=== PATIENT | male | born 1955 | race Caucasian/White ===

== ENCOUNTER 2022-12-14 07:50 | Outpatient (CLI) | payer OTHER, SELFPAY ==
[2022-12-14 10:01] LABS: Basophils Absolute Auto 0.01 K/uL (0.00-0.30); Basophils Percent Auto 0.1 % (0.0-3.0); Eosinophils Absolute Auto 0.19 K/uL (0.00-0.50); Hematocrit 50.5 % (37.0-53.0); Hemoglobin* 17.2 gm/dL (13.5-17.5); Immature Granulocytes Abs Auto 0.06 K/uL (0.00-0.30); Immature Granulocytes Pct Auto 0.6 %; Lymphocytes Absolute Auto 2.19 K/uL (0.90-2.90); Mean Corpuscular HGB Conc 34 gm/dL (32-36); Mean Corpuscular Hemoglobin 28 pg (26-34); Mean Corpuscular Volume 83 fL (80-100); Monocytes Percent Auto 8.4 % (0.0-11.0); Neutrophils Absolute Auto 6.26 K/uL (1.7-7.0); Neutrophils Percent Auto 65.9 % (42.0-72.0); Platelet Count* 315 K/uL (140-440); RDW Coefficient of Variation % 13.5 % (11.5-15.5); Red Blood Count 6.09 m/uL (4.30-5.90); White Blood Count* 9.51 K/uL (4.50-11.00)
[2022-12-14 10:08] LABS: Slide Review Reflex No
[2022-12-14 10:20] LABS: C Reactive Protein* 1.5 mg/dL (0.5-1.0)
[2022-12-14 10:49] LABS: Erythrocyte SedimentationRate* 4 mm/hr (2-15)
== END 2022-12-14 07:51 | disposition home or self-care (01) ==
PROVIDERS: PCP Internal Medicine; Visit Provider Nurse Practitioner Family
DX: E11.621 Type 2 diabetes mellitus with foot ulcer (principal); L97.522 Non-pressure chronic ulcer of other part of left foot with fat layer exposed; I10 Essential (primary) hypertension; E66.01 Morbid (severe) obesity due to excess calories; Z68.42 Body mass index [BMI] 45.0-49.9, adult; Z79.4 Long term (current) use of insulin
CPT/HCPCS: 36415; 85025; 85651; 86140; 99214

== ENCOUNTER 2022-12-14 09:52 | Outpatient (CLI) | payer OTHER, SELFPAY ==
--- NOTE | 2022-12-14 10:00 | CRLHL7_ITS ---
For Patients: As a result of the Cures Act, medical imaging exams and procedure reports are released immediately into your electronic medical record. You may view this report before your referring provider. If you have questions, please contact your health care provider. Indication: NON-HEALING DIABETIC ULCER TO LEFT FOOT Technique: Left foot 3 views Comparison: None Findings: Plantar and posterior calcaneal spurs are present. Soft tissue swelling noted. Mild degenerative changes at the 1st MTP joint. No fracture or destructive osseous lesion. No dislocation. Impression: No evidence of osteomyelitis. Dictated by Sammy Mcgraw MD @ 12/14/2022 10:17:37 AM (Electronically Signed)
== END 2022-12-14 09:53 | disposition home or self-care (01) ==
LOC: RAD 09:52
PROVIDERS: PCP Internal Medicine; Visit Provider Nurse Practitioner Family
DX: E11.621 Type 2 diabetes mellitus with foot ulcer (principal); L97.522 Non-pressure chronic ulcer of other part of left foot with fat layer exposed
CPT/HCPCS: 73630

== ENCOUNTER 2022-12-19 14:59 | Outpatient (CLI) | payer OTHER, SELFPAY ==
--- NOTE | 2022-12-19 15:00 | CRLHL7_ITS ---
For Patients: As a result of the Century Cures Act, medical imaging exams and procedure reports are released immediately into your electronic medical record. You may view this report before your referring provider. If you have questions, please contact your health care provider. INDICATION: Nonhealing foot ulcer. COMPARISON: None available. TECHNIQUE: Duplex arterial ultrasound examination bilateral extremities with 2D and spectral analysis and color Doppler imaging. FINDINGS: RIGHT: PSV (cm/second). Waveform (Tri-T, Bi-B [place]-M). FRONT OFFICE ADMINISTRATOR: 140. T. DFA: 125. T. FA PRX: 107. T. FA MID: 86. T. FA DISTAL: 54. T. POP A: 65. T. DARRIUS A: 45. T. METAL FURRER: 130. T. ABHIJIT: 72. T. DPA: 70. T. LEFT: PSV (cm/second). Waveform (Tri-T, Bi-B [place]-M). FRONT OFFICE ADMINISTRATOR: 123. T. DFA: 56. T. FA PRX: 128. T. FA MID: 92. T. FA DISTAL: 61. T. POP A: 53. T. DARRIUS A: 35. T. METAL FURRER: 65. T. ABHIJIT: 75. T. DPA: 73. T. FINDINGS: Multiphasic waveforms seen throughout bilateral lower extremities, without a focal velocity shift to suggest hemodynamically significant stenosis. Dictated by Dimas Diaz MD @ 12/19/2022 10:09:38 PM (Electronically Signed)
== END 2022-12-19 15:00 | disposition home or self-care (01) ==
LOC: US 15:02
PROVIDERS: PCP Internal Medicine; Visit Provider Nurse Practitioner Family
DX: E11.621 Type 2 diabetes mellitus with foot ulcer (principal); L97.522 Non-pressure chronic ulcer of other part of left foot with fat layer exposed
CPT/HCPCS: 93926

== ENCOUNTER 2022-12-21 14:53 | Outpatient (CLI) | payer OTHER, SELFPAY | END 2022-12-21 14:54 | disposition home or self-care (01) | LOC: WOUND 14:53 | PROVIDERS: PCP Internal Medicine; Visit Provider Nurse Practitioner Family | DX: E11.621 Type 2 diabetes mellitus with foot ulcer (principal); L97.522 Non-pressure chronic ulcer of other part of left foot with fat layer exposed; I10 Essential (primary) hypertension; R52 Pain, unspecified; Z79.4 Long term (current) use of insulin | CPT/HCPCS: 87070; 87186; 97597; 99212 ==

== ENCOUNTER 2022-12-28 14:21 | Outpatient (CLI) | payer OTHER, SELFPAY | END 2022-12-28 14:22 | disposition home or self-care (01) | LOC: WOUND 14:21 | PROVIDERS: PCP Internal Medicine; Visit Provider Nurse Practitioner Family | DX: E11.621 Type 2 diabetes mellitus with foot ulcer (principal); L97.522 Non-pressure chronic ulcer of other part of left foot with fat layer exposed; Z79.4 Long term (current) use of insulin | CPT/HCPCS: 97597 ==

== ENCOUNTER 2023-01-04 14:20 | Outpatient (CLI) | payer OTHER, SELFPAY | END 2023-01-04 14:21 | disposition home or self-care (01) | LOC: WOUND 14:20 | PROVIDERS: PCP Internal Medicine; Visit Provider Nurse Practitioner Family | DX: E11.621 Type 2 diabetes mellitus with foot ulcer (principal); L97.522 Non-pressure chronic ulcer of other part of left foot with fat layer exposed; Z79.4 Long term (current) use of insulin | CPT/HCPCS: 97597 ==

== ENCOUNTER 2023-01-11 14:29 | Outpatient (CLI) | payer OTHER, SELFPAY | END 2023-01-11 14:30 | disposition home or self-care (01) | LOC: WOUND 14:29 | PROVIDERS: PCP Internal Medicine; Visit Provider Family Medicine | DX: E11.621 Type 2 diabetes mellitus with foot ulcer (principal); L97.522 Non-pressure chronic ulcer of other part of left foot with fat layer exposed; I10 Essential (primary) hypertension; Z79.4 Long term (current) use of insulin | CPT/HCPCS: 11042 ==

== ENCOUNTER 2023-01-18 13:22 | Outpatient (CLI) | payer OTHER, SELFPAY ==
--- NOTE | 2023-01-18 12:38 | AMB.OSTOMY ---
Intake Intake Intake BMI [18 - 64 (<18.5 or >25)] [65& Older (<23 or >30) Visit Reasons: return Coding Level of Care Code 58617- New Pt Level 5 Assessment & Plan Plan Detail Time Spent: Please review Coding section regarding the total time spent today in the care of this patient, separate from any independently billable service. Care includes but is not limited to a medically appropriate evaluation and?the?documentation?of?the care?in?the?health?record.
== END 2023-01-18 13:23 | disposition home or self-care (01) ==
LOC: WOUND 13:22
PROVIDERS: PCP Internal Medicine; Visit Provider Nurse Practitioner Family
DX: E11.621 Type 2 diabetes mellitus with foot ulcer (principal); L97.522 Non-pressure chronic ulcer of other part of left foot with fat layer exposed; Z79.4 Long term (current) use of insulin
CPT/HCPCS: 15275; Q4158

== ENCOUNTER 2023-02-01 14:18 | Outpatient (CLI) | payer OTHER, SELFPAY | END 2023-02-01 14:19 | disposition home or self-care (01) | LOC: WOUND 14:18 | PROVIDERS: PCP Internal Medicine; Visit Provider Nurse Practitioner Family | DX: E11.621 Type 2 diabetes mellitus with foot ulcer (principal); L97.522 Non-pressure chronic ulcer of other part of left foot with fat layer exposed | CPT/HCPCS: 15275; Q4158 ==

== ENCOUNTER 2023-02-08 14:24 | Outpatient (CLI) | payer OTHER, SELFPAY | END 2023-02-08 14:25 | disposition home or self-care (01) | LOC: WOUND 14:24 | PROVIDERS: PCP Internal Medicine; Visit Provider Family Medicine | DX: E11.621 Type 2 diabetes mellitus with foot ulcer (principal); L97.522 Non-pressure chronic ulcer of other part of left foot with fat layer exposed; Z79.4 Long term (current) use of insulin | CPT/HCPCS: 15275; Q4158 ==

== ENCOUNTER 2023-02-15 14:54 | Outpatient (CLI) | payer OTHER, SELFPAY | END 2023-02-15 14:55 | disposition home or self-care (01) | LOC: WOUND 14:54 | PROVIDERS: PCP Internal Medicine; Visit Provider Nurse Practitioner Family | DX: E11.621 Type 2 diabetes mellitus with foot ulcer (principal); L97.522 Non-pressure chronic ulcer of other part of left foot with fat layer exposed; Z79.4 Long term (current) use of insulin | CPT/HCPCS: 15275; Q4158 ==

== ENCOUNTER 2023-02-22 14:16 | Outpatient (CLI) | payer OTHER, SELFPAY | END 2023-02-22 14:17 | disposition home or self-care (01) | LOC: WOUND 14:16 | PROVIDERS: PCP Internal Medicine; Visit Provider Nurse Practitioner Family | DX: E11.621 Type 2 diabetes mellitus with foot ulcer (principal); L97.522 Non-pressure chronic ulcer of other part of left foot with fat layer exposed; Z79.4 Long term (current) use of insulin | CPT/HCPCS: 15275; Q4158 ==

== ENCOUNTER 2023-03-01 14:17 | Outpatient (CLI) | payer OTHER, SELFPAY | END 2023-03-01 14:18 | disposition home or self-care (01) | LOC: WOUND 14:18 | PROVIDERS: PCP Internal Medicine; Visit Provider Nurse Practitioner Family | DX: E11.621 Type 2 diabetes mellitus with foot ulcer (principal); L97.522 Non-pressure chronic ulcer of other part of left foot with fat layer exposed; Z79.4 Long term (current) use of insulin | CPT/HCPCS: 15275; Q4158 ==

== ENCOUNTER 2023-03-08 14:23 | Outpatient (CLI) | payer OTHER, SELFPAY | END 2023-03-08 14:24 | disposition home or self-care (01) | LOC: WOUND 14:24 | PROVIDERS: PCP Internal Medicine; Visit Provider Nurse Practitioner Family | DX: E11.621 Type 2 diabetes mellitus with foot ulcer (principal); L97.522 Non-pressure chronic ulcer of other part of left foot with fat layer exposed; Z79.4 Long term (current) use of insulin | CPT/HCPCS: 97597 ==

== ENCOUNTER 2023-03-15 12:30 | Outpatient (CLI) | payer OTHER, SELFPAY | END 2023-03-15 12:31 | disposition home or self-care (01) | LOC: WOUND 12:30 | PROVIDERS: PCP Internal Medicine; Visit Provider Nurse Practitioner Family | DX: E11.621 Type 2 diabetes mellitus with foot ulcer (principal); L97.522 Non-pressure chronic ulcer of other part of left foot with fat layer exposed; T25.222A Burn of second degree of left foot, initial encounter; X15.8XXA Contact with other hot household appliances, initial encounter; Z79.4 Long term (current) use of insulin | CPT/HCPCS: 15275; G0463; Q4158 ==

== ENCOUNTER 2023-03-22 14:05 | Outpatient (CLI) | payer OTHER, SELFPAY | END 2023-03-22 14:06 | disposition home or self-care (01) | LOC: WOUND 14:06 | PROVIDERS: PCP Internal Medicine; Visit Provider Physician Assistant | DX: E11.621 Type 2 diabetes mellitus with foot ulcer (principal); L97.522 Non-pressure chronic ulcer of other part of left foot with fat layer exposed; T25.222A Burn of second degree of left foot, initial encounter; Z79.4 Long term (current) use of insulin | CPT/HCPCS: 15275; G0463; Q4158 ==

== ENCOUNTER 2023-03-29 14:18 | Outpatient (CLI) | payer OTHER, SELFPAY | END 2023-03-29 14:19 | disposition home or self-care (01) | LOC: WOUND 14:18 | PROVIDERS: PCP Internal Medicine; Visit Provider Nurse Practitioner Family | DX: E11.621 Type 2 diabetes mellitus with foot ulcer (principal); L97.522 Non-pressure chronic ulcer of other part of left foot with fat layer exposed | CPT/HCPCS: 15275; Q4158 ==

== ENCOUNTER 2023-04-05 14:12 | Outpatient (CLI) | payer OTHER, SELFPAY | END 2023-04-05 14:13 | disposition home or self-care (01) | LOC: WOUND 14:12 | PROVIDERS: PCP Internal Medicine; Visit Provider Nurse Practitioner Family | DX: E11.621 Type 2 diabetes mellitus with foot ulcer (principal); L97.522 Non-pressure chronic ulcer of other part of left foot with fat layer exposed; T25.222A Burn of second degree of left foot, initial encounter; Z79.4 Long term (current) use of insulin | CPT/HCPCS: 11042; 16020 ==

== ENCOUNTER 2023-04-12 14:13 | Outpatient (CLI) | payer OTHER, SELFPAY | END 2023-04-12 14:14 | disposition home or self-care (01) | LOC: WOUND 14:13 | PROVIDERS: PCP Internal Medicine; Visit Provider Nurse Practitioner Family | DX: E11.621 Type 2 diabetes mellitus with foot ulcer (principal); L97.522 Non-pressure chronic ulcer of other part of left foot with fat layer exposed; Z79.4 Long term (current) use of insulin | CPT/HCPCS: 15275; Q4101 ==

== ENCOUNTER 2023-04-19 14:10 | Outpatient (CLI) | payer OTHER, SELFPAY | END 2023-04-19 14:11 | disposition home or self-care (01) | LOC: WOUND 14:10 | PROVIDERS: PCP Internal Medicine; Visit Provider Nurse Practitioner Family | DX: E11.621 Type 2 diabetes mellitus with foot ulcer (principal); L97.522 Non-pressure chronic ulcer of other part of left foot with fat layer exposed; Z79.4 Long term (current) use of insulin | CPT/HCPCS: 15275; Q4101 ==

== ENCOUNTER 2023-04-26 12:30 | Outpatient (CLI) | payer OTHER, SELFPAY | END 2023-04-26 12:31 | disposition home or self-care (01) | LOC: WOUND 12:30 | PROVIDERS: PCP Internal Medicine; Visit Provider Nurse Practitioner Family | DX: E11.621 Type 2 diabetes mellitus with foot ulcer (principal); L97.522 Non-pressure chronic ulcer of other part of left foot with fat layer exposed; Z79.4 Long term (current) use of insulin | CPT/HCPCS: G0463 ==

== ENCOUNTER 2023-05-03 14:11 | Outpatient (CLI) | payer OTHER, SELFPAY | END 2023-05-03 14:12 | disposition home or self-care (01) | LOC: WOUND 14:11 | PROVIDERS: PCP Internal Medicine; Visit Provider Nurse Practitioner Family | DX: E11.621 Type 2 diabetes mellitus with foot ulcer (principal); L97.522 Non-pressure chronic ulcer of other part of left foot with fat layer exposed; Z79.4 Long term (current) use of insulin | CPT/HCPCS: 15275; Q4101 ==

== ENCOUNTER 2023-05-10 13:17 | Outpatient (CLI) | payer OTHER, SELFPAY | END 2023-05-10 13:18 | disposition home or self-care (01) | LOC: WOUND 13:17 | PROVIDERS: PCP Internal Medicine; Visit Provider Nurse Practitioner Family | DX: E11.621 Type 2 diabetes mellitus with foot ulcer (principal); L97.522 Non-pressure chronic ulcer of other part of left foot with fat layer exposed; Z79.4 Long term (current) use of insulin | CPT/HCPCS: G0463 ==

== ENCOUNTER 2023-05-17 14:11 | Outpatient (CLI) | payer OTHER, SELFPAY | END 2023-05-17 14:12 | disposition home or self-care (01) | LOC: WOUND 14:11 | PROVIDERS: PCP Internal Medicine; Visit Provider Nurse Practitioner Family | DX: E11.621 Type 2 diabetes mellitus with foot ulcer (principal); L97.522 Non-pressure chronic ulcer of other part of left foot with fat layer exposed; Z79.4 Long term (current) use of insulin | CPT/HCPCS: 11042 ==

== ENCOUNTER 2023-05-24 14:08 | Outpatient (CLI) | payer OTHER, SELFPAY | END 2023-05-24 14:09 | disposition home or self-care (01) | LOC: WOUND 14:08 | PROVIDERS: PCP Internal Medicine; Visit Provider Nurse Practitioner Family | DX: E11.621 Type 2 diabetes mellitus with foot ulcer (principal); L97.522 Non-pressure chronic ulcer of other part of left foot with fat layer exposed; Z79.4 Long term (current) use of insulin | CPT/HCPCS: 97597 ==

== ENCOUNTER 2023-05-31 14:13 | Outpatient (CLI) | payer OTHER, SELFPAY | END 2023-05-31 14:14 | disposition home or self-care (01) | LOC: WOUND 14:13 | PROVIDERS: PCP Internal Medicine; Visit Provider Family Medicine | DX: E11.621 Type 2 diabetes mellitus with foot ulcer (principal); L97.522 Non-pressure chronic ulcer of other part of left foot with fat layer exposed; Z79.4 Long term (current) use of insulin | CPT/HCPCS: 11042 ==

== ENCOUNTER 2023-06-07 14:12 | Outpatient (CLI) | payer OTHER, SELFPAY | END 2023-06-07 14:13 | disposition home or self-care (01) | LOC: WOUND 14:12 | PROVIDERS: PCP Internal Medicine; Visit Provider Nurse Practitioner Family | DX: E11.621 Type 2 diabetes mellitus with foot ulcer (principal); L97.522 Non-pressure chronic ulcer of other part of left foot with fat layer exposed; Z79.4 Long term (current) use of insulin | CPT/HCPCS: 15275; Q4101 ==

== ENCOUNTER 2023-06-14 14:10 | Outpatient (CLI) | payer OTHER, SELFPAY | END 2023-06-14 14:11 | disposition home or self-care (01) | LOC: WOUND 14:10 | PROVIDERS: PCP Internal Medicine; Visit Provider Nurse Practitioner Family | DX: E11.621 Type 2 diabetes mellitus with foot ulcer (principal); L97.522 Non-pressure chronic ulcer of other part of left foot with fat layer exposed; Z79.4 Long term (current) use of insulin | CPT/HCPCS: G0463 ==

== ENCOUNTER 2023-06-21 14:14 | Outpatient (CLI) | payer OTHER, SELFPAY | END 2023-06-21 14:15 | disposition home or self-care (01) | LOC: WOUND 14:14 | PROVIDERS: PCP Internal Medicine; Visit Provider Nurse Practitioner Family | DX: E11.621 Type 2 diabetes mellitus with foot ulcer (principal); L97.522 Non-pressure chronic ulcer of other part of left foot with fat layer exposed; Z79.4 Long term (current) use of insulin | CPT/HCPCS: G0463 ==

== ENCOUNTER 2023-06-28 14:14 | Outpatient (CLI) | payer OTHER, SELFPAY | END 2023-06-28 14:15 | disposition home or self-care (01) | LOC: WOUND 14:14 | PROVIDERS: PCP Internal Medicine; Visit Provider Nurse Practitioner Family | DX: E11.621 Type 2 diabetes mellitus with foot ulcer (principal); L97.522 Non-pressure chronic ulcer of other part of left foot with fat layer exposed; B36.9 Superficial mycosis, unspecified | CPT/HCPCS: 97597 ==

== ENCOUNTER 2023-07-05 14:12 | Outpatient (CLI) | payer OTHER, SELFPAY | END 2023-07-05 14:13 | disposition home or self-care (01) | LOC: WOUND 14:12 | PROVIDERS: PCP Internal Medicine; Visit Provider Nurse Practitioner Family | DX: E11.621 Type 2 diabetes mellitus with foot ulcer (principal); L97.522 Non-pressure chronic ulcer of other part of left foot with fat layer exposed; Z79.4 Long term (current) use of insulin | CPT/HCPCS: 97597 ==

== ENCOUNTER 2023-07-12 14:11 | Outpatient (CLI) | payer OTHER, SELFPAY | END 2023-07-12 14:12 | disposition home or self-care (01) | LOC: WOUND 14:11 | PROVIDERS: PCP Internal Medicine; Visit Provider Nurse Practitioner Family | DX: E11.621 Type 2 diabetes mellitus with foot ulcer (principal); L97.522 Non-pressure chronic ulcer of other part of left foot with fat layer exposed; B36.9 Superficial mycosis, unspecified; Z79.4 Long term (current) use of insulin | CPT/HCPCS: 15275; 87070; 87186; Q4158 ==

== ENCOUNTER 2023-07-19 14:06 | Outpatient (CLI) | payer OTHER, SELFPAY | END 2023-07-19 14:07 | disposition home or self-care (01) | LOC: WOUND 14:07 | PROVIDERS: PCP Internal Medicine; Visit Provider Physician Assistant Surgical | DX: E11.621 Type 2 diabetes mellitus with foot ulcer (principal); L97.522 Non-pressure chronic ulcer of other part of left foot with fat layer exposed; Z79.4 Long term (current) use of insulin | CPT/HCPCS: 11042 ==

== ENCOUNTER 2023-07-26 14:05 | Outpatient (CLI) | payer OTHER, SELFPAY | END 2023-07-26 14:06 | disposition home or self-care (01) | LOC: WOUND 14:05 | PROVIDERS: PCP Internal Medicine; Visit Provider Physician Assistant | DX: E11.621 Type 2 diabetes mellitus with foot ulcer (principal); L97.522 Non-pressure chronic ulcer of other part of left foot with fat layer exposed; Z79.4 Long term (current) use of insulin | CPT/HCPCS: 97597 ==

== ENCOUNTER 2023-08-02 14:12 | Outpatient (CLI) | payer OTHER, SELFPAY ==
[2023-08-02 15:30] LABS: Basophils Percent Auto 0.2 % (0.0-3.0); Eosinophils Percent Auto 2.2 % (0.0-7.0); Hematocrit 48.8 % (37.0-53.0); Hemoglobin* 16.7 gm/dL (13.5-17.5); Immature Granulocytes Pct Auto 0.4 %; Lymphocytes Percent Auto 24.2 % (20-44); Mean Corpuscular HGB Conc 34 gm/dL (32-36); Mean Corpuscular Hemoglobin 29 pg (26-34); Mean Corpuscular Volume 83 fL (80-100); Monocytes Percent Auto 8.1 % (0.0-11.0); Neutrophils Percent Auto 64.9 % (42.0-72.0); Platelet Count* 252 K/uL (140-440); RDW Coefficient of Variation % 13.3 % (11.5-15.5); Red Blood Count 5.86 m/uL (4.30-5.90); Slide Review Reflex No; White Blood Count* 11.81 K/uL (4.50-11.00)
[2023-08-02 17:16] LABS: Iron* 78 ug/dL (49-181)
== END 2023-08-02 14:13 | disposition home or self-care (01) ==
LOC: WOUND 14:12
PROVIDERS: PCP Internal Medicine; Visit Provider Nurse Practitioner Family
DX: E11.621 Type 2 diabetes mellitus with foot ulcer (principal); L97.522 Non-pressure chronic ulcer of other part of left foot with fat layer exposed; I10 Essential (primary) hypertension; Z79.4 Long term (current) use of insulin
CPT/HCPCS: 36415; 82728; 83540; 85025; 97597

== ENCOUNTER 2023-08-09 14:16 | Outpatient (CLI) | payer OTHER, SELFPAY | END 2023-08-09 14:17 | disposition home or self-care (01) | LOC: WOUND 14:16 | PROVIDERS: PCP Internal Medicine; Visit Provider Nurse Practitioner Family | DX: E11.621 Type 2 diabetes mellitus with foot ulcer (principal); L97.528 Non-pressure chronic ulcer of other part of left foot with other specified severity; B36.9 Superficial mycosis, unspecified; Z79.4 Long term (current) use of insulin | CPT/HCPCS: G0463 ==

== ENCOUNTER 2023-08-30 14:14 | Outpatient (CLI) | payer OTHER, SELFPAY | END 2023-08-30 14:15 | disposition home or self-care (01) | LOC: WOUND 14:14 | PROVIDERS: PCP Internal Medicine; Visit Provider Nurse Practitioner Family | DX: E11.621 Type 2 diabetes mellitus with foot ulcer (principal); L97.522 Non-pressure chronic ulcer of other part of left foot with fat layer exposed; I10 Essential (primary) hypertension; Z79.4 Long term (current) use of insulin | CPT/HCPCS: 11042 ==

== ENCOUNTER 2023-09-06 13:17 | Outpatient (CLI) | payer OTHER, SELFPAY | END 2023-09-06 13:18 | disposition home or self-care (01) | LOC: WOUND 13:17 | PROVIDERS: PCP Internal Medicine; Visit Provider Nurse Practitioner Family | DX: E11.621 Type 2 diabetes mellitus with foot ulcer (principal); L97.522 Non-pressure chronic ulcer of other part of left foot with fat layer exposed; Z79.4 Long term (current) use of insulin | CPT/HCPCS: 11042 ==

== ENCOUNTER 2023-09-13 15:09 | Outpatient (CLI) | payer OTHER, SELFPAY | END 2023-09-13 15:10 | disposition home or self-care (01) | LOC: WOUND 15:09 | PROVIDERS: PCP Internal Medicine; Visit Provider Nurse Practitioner Family | DX: E11.621 Type 2 diabetes mellitus with foot ulcer (principal); L97.522 Non-pressure chronic ulcer of other part of left foot with fat layer exposed; Z79.4 Long term (current) use of insulin | CPT/HCPCS: 11042 ==

== ENCOUNTER 2023-09-20 14:09 | Outpatient (CLI) | payer OTHER, SELFPAY | END 2023-09-20 14:10 | disposition home or self-care (01) | LOC: WOUND 14:09 | PROVIDERS: PCP Internal Medicine; Visit Provider Nurse Practitioner Family | DX: E11.621 Type 2 diabetes mellitus with foot ulcer (principal); L97.522 Non-pressure chronic ulcer of other part of left foot with fat layer exposed; B36.9 Superficial mycosis, unspecified | CPT/HCPCS: 97597 ==

== ENCOUNTER 2023-09-26 12:25 | Outpatient (CLI) | payer OTHER, SELFPAY | END 2023-09-26 12:26 | disposition home or self-care (01) | LOC: WOUND 12:25 | PROVIDERS: PCP Internal Medicine; Visit Provider Nurse Practitioner Family | DX: E11.621 Type 2 diabetes mellitus with foot ulcer (principal); L97.521 Non-pressure chronic ulcer of other part of left foot limited to breakdown of skin | CPT/HCPCS: 97597 ==

== ENCOUNTER 2023-10-04 14:15 | Outpatient (CLI) | payer OTHER, SELFPAY | END 2023-10-04 14:16 | disposition home or self-care (01) | LOC: WOUND 10-08 12:12 | PROVIDERS: PCP Internal Medicine; Visit Provider Nurse Practitioner Family | DX: E11.621 Type 2 diabetes mellitus with foot ulcer (principal); L97.522 Non-pressure chronic ulcer of other part of left foot with fat layer exposed | CPT/HCPCS: 97597 ==

== ENCOUNTER 2023-10-11 14:14 | Outpatient (CLI) | payer OTHER, SELFPAY | END 2023-10-11 14:15 | disposition home or self-care (01) | LOC: WOUND 14:14 | PROVIDERS: PCP Internal Medicine; Visit Provider Nurse Practitioner Family | DX: E11.621 Type 2 diabetes mellitus with foot ulcer (principal); L97.522 Non-pressure chronic ulcer of other part of left foot with fat layer exposed; Z79.4 Long term (current) use of insulin | CPT/HCPCS: G0463 ==

== ENCOUNTER 2023-10-18 08:13 | Outpatient (CLI) | payer OTHER, SELFPAY | END 2023-10-18 08:14 | disposition home or self-care (01) | LOC: WOUND 11-13 17:06 | PROVIDERS: PCP Internal Medicine; Visit Provider Nurse Practitioner Family | DX: E11.621 Type 2 diabetes mellitus with foot ulcer (principal); L97.522 Non-pressure chronic ulcer of other part of left foot with fat layer exposed; S80.861A Insect bite (nonvenomous), right lower leg, initial encounter | CPT/HCPCS: 97597 ==

== ENCOUNTER 2023-10-25 14:42 | Outpatient (CLI) | payer OTHER, SELFPAY | END 2023-10-25 14:43 | disposition home or self-care (01) | LOC: WOUND 14:42 | PROVIDERS: PCP Internal Medicine; Visit Provider Nurse Practitioner Family | DX: E11.621 Type 2 diabetes mellitus with foot ulcer (principal); L97.522 Non-pressure chronic ulcer of other part of left foot with fat layer exposed | CPT/HCPCS: 97597 ==

== ENCOUNTER 2023-11-01 15:09 | Outpatient (CLI) | payer OTHER, SELFPAY | END 2023-11-01 15:10 | disposition home or self-care (01) | LOC: WOUND 15:09 | PROVIDERS: PCP Internal Medicine; Visit Provider Nurse Practitioner Family | DX: E11.621 Type 2 diabetes mellitus with foot ulcer (principal); L97.522 Non-pressure chronic ulcer of other part of left foot with fat layer exposed; S80.861A Insect bite (nonvenomous), right lower leg, initial encounter; Z79.4 Long term (current) use of insulin | CPT/HCPCS: 15275; 97597; Q4101 ==

== ENCOUNTER 2023-11-08 14:09 | Outpatient (CLI) | payer OTHER, SELFPAY | END 2023-11-08 14:10 | disposition home or self-care (01) | LOC: WOUND 14:09 | PROVIDERS: PCP Internal Medicine; Visit Provider Nurse Practitioner Family | DX: S80.861A Insect bite (nonvenomous), right lower leg, initial encounter (principal) | CPT/HCPCS: 11042 ==

== ENCOUNTER 2023-11-15 14:07 | Outpatient (CLI) | payer OTHER, SELFPAY | END 2023-11-15 14:08 | disposition home or self-care (01) | LOC: WOUND 14:07 | PROVIDERS: PCP Internal Medicine; Visit Provider Nurse Practitioner Family | DX: E11.621 Type 2 diabetes mellitus with foot ulcer (principal); L97.521 Non-pressure chronic ulcer of other part of left foot limited to breakdown of skin; I10 Essential (primary) hypertension; L97.812 Non-pressure chronic ulcer of other part of right lower leg with fat layer exposed; Z79.4 Long term (current) use of insulin | CPT/HCPCS: 11042; 97597 ==

== ENCOUNTER 2023-11-29 14:08 | Outpatient (CLI) | payer OTHER, SELFPAY | END 2023-11-29 14:09 | disposition home or self-care (01) | LOC: WOUND 14:08 | PROVIDERS: PCP Internal Medicine; Visit Provider Nurse Practitioner Family | DX: I10 Essential (primary) hypertension (principal); L97.812 Non-pressure chronic ulcer of other part of right lower leg with fat layer exposed | CPT/HCPCS: 11042 ==

== ENCOUNTER 2023-12-06 14:10 | Outpatient (CLI) | payer OTHER, SELFPAY | END 2023-12-06 14:11 | disposition home or self-care (01) | LOC: WOUND 14:10 | PROVIDERS: PCP Internal Medicine; Visit Provider Nurse Practitioner Family | DX: I10 Essential (primary) hypertension (principal); L97.811 Non-pressure chronic ulcer of other part of right lower leg limited to breakdown of skin | CPT/HCPCS: 97597 ==

== ENCOUNTER 2023-12-13 13:35 | Outpatient (CLI) | payer OTHER, SELFPAY | END 2023-12-13 13:36 | disposition home or self-care (01) | LOC: WOUND 13:35 | PROVIDERS: PCP Internal Medicine; Visit Provider Nurse Practitioner Family | DX: Z86.31 Personal history of diabetic foot ulcer (principal); I10 Essential (primary) hypertension; L97.818 Non-pressure chronic ulcer of other part of right lower leg with other specified severity | CPT/HCPCS: G0463 ==